=== PATIENT | female | born 1975 | race African-American/Black ===

== ENCOUNTER 2017-01-08 13:44 | Outpatient (RCR) | payer MEDICAID | END 2017-02-19 10:25 | disposition home or self-care (01) | LOC: WSPT 13:44 | DX: M54.42 Lumbago with sciatica, left side (principal); M54.41 Lumbago with sciatica, right side; M25.562 Pain in left knee; M25.561 Pain in right knee ==

== ENCOUNTER 2017-08-03 20:31 | Emergency (ER) | payer SELFPAY ==
[~2017-08-03] VITALS: Ht 165.1 cm; Wt 84.1 kg
[2017-08-03 20:33] VITALS: BP 148/72; TEMP 99.1
[2017-08-03] MEDS ORDERED: EFFEXOR 50M50 MG/TAB PO (20:47)
[2017-08-03] MEDS ORDERED: TENORMIN 2525 MG/TAB PO (21:23)
[2017-08-03] MEDS ORDERED: NORCO 325 MG-51 TAB PO (21:23)
[2017-08-03] MEDS ORDERED: CLEOCIN HCL300 MG PO (21:23)
[2017-08-03] MEDS ORDERED: ZOVIRAX 200MG200 MG PO (21:23)
[2017-08-03 21:50] VITALS: PULSE 86
== END 2017-08-03 21:50 | disposition home or self-care (01) ==
LOC: COL.ER 20:31
DX: B00.89 Other herpesviral infection (principal); K08.89 Other specified disorders of teeth and supporting structures; I10 Essential (primary) hypertension

== ENCOUNTER 2018-08-07 09:41 | Emergency (ER) | payer SELFPAY ==
[~2018-08-07] VITALS: Ht 165.1 cm; Wt 92.3 kg
[~2018-08-07 09:41] MED LIST: CLEOCIN HCL300 MG PO; EFFEXOR 50M50 MG/TAB PO; NORCO 325 MG-51 TAB PO; TENORMIN 2525 MG/TAB PO; ZOVIRAX 200MG200 MG PO
[2018-08-07 09:45] VITALS: BP 160/81; TEMP 97.8
[2018-08-07] MEDS ORDERED: NORCO 325 MG-51 TAB PO (10:04)
[2018-08-07] MEDS ORDERED: AMOXICILLIN 50500 MG PO (10:04)
[2018-08-07 10:23] VITALS: PULSE 90
== END 2018-08-07 10:24 | disposition home or self-care (01) ==
LOC: COL.ER 09:41
DX: K04.7 Periapical abscess without sinus (principal); F32.9 Major depressive disorder, single episode, unspecified; I10 Essential (primary) hypertension
CPT/HCPCS: J1885

== ENCOUNTER → 2018-11-04 | Outpatient (CLI) | payer SELFPAY ==
[~2018-11-04] MED LIST changes: +AMOXICILLIN 50500 MG PO; +NEURONTIN300 MG/CAP PO; +VALTREX1 GM PO; +ZOVIRAX400 MG PO
== END ==
LOC: MC.RAD 07:07
DX: N64.4 Mastodynia (principal)
CPT/HCPCS: G0279

== ENCOUNTER 2018-11-06 12:54 | Emergency (ER) | payer SELFPAY ==
[~2018-11-06] VITALS: Ht 167.6 cm; Wt 98.2 kg
[~2018-11-06 12:54] MED LIST changes: -NEURONTIN300 MG/CAP PO; -ZOVIRAX400 MG PO
[2018-11-06 13:02] VITALS: BP 173/88; PULSE 108; TEMP 99.3
[2018-11-06] MEDS ORDERED: ZOVIRAX400 MG PO (13:35)
[2018-11-06] MEDS ORDERED: NEURONTIN300 MG/CAP PO (14:24)
== END 2018-11-06 14:33 | disposition home or self-care (01) ==
LOC: COL.ER 12:54
DX: B00.9 Herpesviral infection, unspecified (principal)

== ENCOUNTER 2019-09-07 10:58 | Emergency (ER) | payer SELFPAY ==
[~2019-09-07] VITALS: Ht 320 cm; Wt 100.0 kg
[~2019-09-07 10:58] MED LIST changes: +NEURONTIN300 MG/CAP PO; +ZOVIRAX400 MG PO
[2019-09-07 11:03] VITALS: TEMP 97.7
[2019-09-07] MEDS ORDERED: CATAPRES 0.1MG0.1 MG PO (11:21)
[2019-09-07 11:36] LABS: COLLECTION METHOD CLEAN CATCH
[2019-09-07 11:52] LABS: MUCOUS Present /lpf; PH 5 (5-8); URINE APPEARANCE Cloudy; URINE BACTERIA None Seen /hpf; URINE BILIRUBIN Positive (NEGATIVE); URINE BLOOD Negative (NEGATIVE); URINE COLOR Amber; URINE GLUCOSE Negative (NEGATIVE); URINE KETONE Trace (NEGATIVE); URINE LEUKOCYTE ESTERASE Negative (NEGATIVE); URINE NITRATE Negative (NEGATIVE); URINE PROTEIN(semi-quant) 2+ (NEGATIVE); URINE RBC 0-2 /hpf
[2019-09-07 11:52] LABS: BASO # 0.1 (0.0-0.2); BASO % 0.6 % (0.0-2.0); EOS # 0.3 (0.0-0.7); EOS % 3.1 % (0-4.0); GRAN # 6.6 (1.4-6.5); GRAN % 62.6 % (42.2-75.2); LYMPH # 2.8 (1.2-3.4); LYMPH % 26.8 % (20.0-51.0); MEAN CELL VOLUME 75 fl (80.0-100.0); MEAN CORPUSCULAR HGB CONC 29 g/dl (33.0-37.0); MEAN PLATELET VOLUME 9.3 fl (7.4-10.4); MONO # 0.7 (0.1-0.6); MONO % 6.5 % (1.7-9.3); PLATELET COUNT 746 K/mm3 (130-400); RED BLOOD COUNT 4.15 M/mm3 (4.10-5.30); REDCELL DISTRIBUTION WIDTH-CV 18.5 % (11.5-14.5)
[2019-09-07 12:01] LABS: ALANINE AMINOTRANSFERASE 25 U/L (9-52); ALBUMIN 4.1 gm/dL (3.5-5.0); ALKALINE PHOSPHATASE 120 U/L (50-136); ANION GAP 7 mmol/L (7-16); AST,SGOT 52 U/L (15-37); BILIRUBIN,TOTAL 0.3 mg/dL (0.0-1.0); BLOOD UREA NITROGEN 9 mg/dL (7-17); C-REACTIVE PROTEIN 1.8 mg/dL (0.0-0.9); CALCIUM 9.2 mg/dL (8.4-10.2); CARBON DIOXIDE 28 mmol/L (22-30); CHLORIDE 104 mmol/L (98-107); CREATININE, serum 0.77 (0.52-1.25); GLUCOSE 120 mg/dL (74-106); MAGNESIUM 1.9 mg/dL (1.6-2.3); PHOSPHOROUS 2.7 mg/dL (2.5-4.5); POTASSIUM 3.6 mmol/L (3.4-5.0); SODIUM 138 mmol/L (137-145)
[2019-09-07 12:04] LABS: HEMATOCRIT 31.1 % (37.0-47.0); HEMOGLOBIN 8.9 g/dl (12.5-16.0); MEAN CORPUSCULAR HEMOGLOBIN 21 pg (27.0-31.0)
[2019-09-07 12:10] LABS: TROPONIN-I < 0.012 ng/mL (0.000-0.035)
[2019-09-07 12:27] LABS: THYROID STIMULATING HORMONE 0.445 uIU/mL (0.465-4.680)
[2019-09-07 14:50] VITALS: BP 143/88; PULSE 92
[2019-09-07] MEDS ORDERED: VALTREX1 GM PO (15:23)
[2019-09-07] MEDS ORDERED: ATARAX 25MG25 MG/TAB PO (15:23)
[2019-09-07] MEDS ORDERED: MEDROL 4MG DOSPA4 MG PO (15:23)
[2019-09-07] MEDS ORDERED: NORCO 325 MG-51 TAB PO (15:23)
== END 2019-09-07 15:30 | disposition home or self-care (01) ==
LOC: COL.ER 10:58
PROVIDERS: Emergency Medicine
DX: D64.9 Anemia, unspecified (principal); M79.605 Pain in left leg; M79.604 Pain in right leg; M06.9 Rheumatoid arthritis, unspecified; Z90.89 Acquired absence of other organs; Z98.84 Bariatric surgery status
CPT/HCPCS: J1170; J7512; Q9967

== ENCOUNTER → 2019-10-12 | Outpatient (CLI) | payer OTHER ==
[~2019-10-12] MED LIST changes: +ATARAX 25MG25 MG/TAB PO; +CATAPRES 0.1MG0.1 MG PO; +MEDROL 4MG DOSPA4 MG PO
== END ==
LOC: COL.RAD 12:46
DX: R05 Cough (principal); R07.9 Chest pain, unspecified

== ENCOUNTER 2020-05-18 12:59 | Emergency (ER) | payer SELFPAY ==
[~2020-05-18] VITALS: Ht 165.1 cm; Wt 97.7 kg
[2020-05-18 13:06] VITALS: BP 132/76; TEMP 98.3
[2020-05-18 14:31] LABS: ALANINE AMINOTRANSFERASE 14 U/L (4-34); ALBUMIN 3.9 gm/dL (3.5-5.0); ALKALINE PHOSPHATASE 93 U/L (50-136); ANION GAP 6 mmol/L (7-16); AST,SGOT 28 U/L (15-37); BILIRUBIN,TOTAL 0.3 mg/dL (0.0-1.0); BLOOD UREA NITROGEN 10 mg/dL (7-17); C-REACTIVE PROTEIN < 0.5 mg/dL (0.0-0.9); CALCIUM 8.6 mg/dL (8.4-10.2); CARBON DIOXIDE 25 mmol/L (22-30); CHLORIDE 107 mmol/L (98-107); CREATININE, serum 1.13 (0.52-1.25); GLUCOSE 90 mg/dL (74-106); POTASSIUM 4.1 mmol/L (3.4-5.0); SODIUM 137 mmol/L (137-145); TOTAL PROTEIN 7.7 gm/dL (6.4-8.2)
[2020-05-18 14:34] LABS: BASO # 0.1 (0.0-0.2); BASO % 0.6 % (0.0-2.0); EOS # 0.3 (0.0-0.7); EOS % 3.4 % (0-4.0); GRAN # 5.5 (1.4-6.5); GRAN % 58.9 % (42.2-75.2); LYMPH # 2.8 (1.2-3.4); LYMPH % 29.5 % (20.0-51.0); MEAN CELL VOLUME 77 fl (80.0-100.0); MEAN CORPUSCULAR HGB CONC 29 g/dl (33.0-37.0); MEAN PLATELET VOLUME 9.1 fl (7.4-10.4); MONO # 0.7 (0.1-0.6); MONO % 7.4 % (1.7-9.3); PLATELET COUNT 645 K/mm3 (130-400); RED BLOOD COUNT 3.85 M/mm3 (4.10-5.30); REDCELL DISTRIBUTION WIDTH-CV 19.9 % (11.5-14.5)
[2020-05-18 14:39] LABS: HEMATOCRIT 29.5 % (37.0-47.0); HEMOGLOBIN 8.6 g/dl (12.5-16.0); MEAN CORPUSCULAR HEMOGLOBIN 22 pg (27.0-31.0)
[2020-05-18] MEDS ORDERED: VALTREX1 GM PO (14:47)
[2020-05-18] MEDS ORDERED: NORCO 325 MG-51 TAB PO (15:28)
[2020-05-18 15:50] VITALS: PULSE 92
== END 2020-05-18 15:50 | disposition home or self-care (01) ==
LOC: COL.ER 12:59
PROVIDERS: Physician Assistant
DX: M79.604 Pain in right leg (principal); M54.30 Sciatica, unspecified side; F32.9 Major depressive disorder, single episode, unspecified; F17.210 Nicotine dependence, cigarettes, uncomplicated; Z98.84 Bariatric surgery status; Z88.0 Allergy status to penicillin; Z88.6 Allergy status to analgesic agent

== ENCOUNTER 2020-05-30 14:43 | Emergency (ER) | payer SELFPAY ==
[~2020-05-30] VITALS: Ht 165.1 cm; Wt 99.1 kg
[2020-05-30 14:50] VITALS: TEMP 98.4
[2020-05-30] MEDS ORDERED: MEDROL 4MG DOSPA4 MG PO ×2 (16:56→18:18)
[2020-05-30] MEDS ORDERED: LIDODERM 5% PATC1 EA TP ×2 (16:56→18:18)
[2020-05-30] MEDS ORDERED: VALIUM 10MG10 MG/TAB PO ×2 (16:56→18:18)
[2020-05-30] MEDS ORDERED: NORCO 325 MG-51 TAB PO ×2 (16:56→18:18)
[2020-05-30 17:08] VITALS: BP 140/79; PULSE 69
== END 2020-05-30 17:08 | disposition home or self-care (01) ==
LOC: COL.ER 14:43
DX: S39.012A Strain of muscle, fascia and tendon of lower back, initial encounter (principal); M54.17 Radiculopathy, lumbosacral region; Z98.84 Bariatric surgery status; Z90.49 Acquired absence of other specified parts of digestive tract; X50.0XXA Overexertion from strenuous movement or load, initial encounter
CPT/HCPCS: J3360

== ENCOUNTER 2020-10-17 11:02 | Emergency (ER) | payer SELFPAY ==
[~2020-10-17] VITALS: Ht 165.1 cm; Wt 90.9 kg
[~2020-10-17 11:02] MED LIST changes: +LIDODERM 5% PATC1 EA TP; +VALIUM 10MG10 MG/TAB PO
[2020-10-17 13:56] VITALS: BP 142/68; PULSE 94; TEMP 98.6
== END 2020-10-17 13:58 | disposition home or self-care (01) ==
LOC: COL.ER 11:02
DX: Z20.828 Contact with and (suspected) exposure to other viral communicable diseases (principal); F17.210 Nicotine dependence, cigarettes, uncomplicated; Z88.6 Allergy status to analgesic agent; Z88.0 Allergy status to penicillin

== ENCOUNTER → 2021-01-03 | Outpatient (CLI) | payer SELFPAY | LOC: COL.RAD 07:47 | DX: M51.27 Other intervertebral disc displacement, lumbosacral region (principal); M48.061 Spinal stenosis, lumbar region without neurogenic claudication ==